=== PATIENT | male | born 1980 | race Caucasian/White ===

== ENCOUNTER 2016-08-31 15:44 | Emergency (ER) | payer OTHER ==
[2016-08-31] MEDS ORDERED: KETOROLAC TROMETHAMINE 60 MG/2 ML VIAL ONE (16:37)
--- NOTE | 2016-08-31 16:39 | ER PHYSICIAN DOCUMENTATION ---
Physician Documentation [facility] Name:Jonny Hanley Age:35 yrs Sex:Male :1980 Arrival Date:08/31/2016 Time:15:44 Bed5 Private MD: Dima Miller Disposition: 08/31/16 16:15 Discharged to Home/Self Care. Impression: Acute Back Pain, Lumbar Radiculopathy. - Condition is Good. - Discharge Instructions: BACK PAIN (Acute or Chronic). - Prescriptions for Percocet 5- 325 mg Oral - take 1 tablet by ORAL route every 6 hours As needed; 15 tablet. - Medical Reconciliation form form. - Follow up: Private Physician; When: As needed; Reason: Continuance of care. - Problem is new. - Symptoms have improved. HPI: 08/31 17:56 This 35 yrs old Male presents to ER via Private Vehicle with complaints of jm Fall Injury. 17:56 Details of fall: The patient fell from a height, getting off horse. Onset: The jm symptom(s)/episode began/occurred just prior to arrival. Severity of symptoms: in the emergency department the symptoms are unchanged. Pt w hx of needing multiple back surgeries, but he was on a horse and fell off and now has pain everywhere. . Historical: - Allergies: No known drug Allergies; - Home Meds: 1. gabapentin oral 2. Zolpidem Tartrate Oral - PMHx: None; - PSHx: right shoulder ; - Ebola Screening: : Patient negative for fever greater than or equal to 101.5 degrees Fahrenheit, and additional compatible Ebola Virus Disease symptoms. Patient denies exposure to infectious person. Patient denies travel to an Ebola-affected area in the 21 days before illness onset. No symptoms or risks identified at this time. . - Immunization history: Flu Vaccine None. - Social history: Smoking status: Patient states was never smoker of tobacco. Patient/guardian denies using alcohol, street drugs, IV drugs, marijuana. ROS: 18:31 Constitutional: Negative for fatigue, fever. jm 18:31 Back: Positive for injury or acute deformity, decreased range of motion, pain with movement. 18:31 MS/extremity: Positive for injury or acute deformity, pain. Exam: 18:31 Constitutional: The patient appears alert, awake, obese. jm 18:31 Respiratory: the patient does not display signs of respiratory distress, Respirations: normal. 18:31 Abdomen/GI: Inspection: abdomen appears normal, Bowel sounds: normal. 18:31 Back: pain, that is moderate, of the lumbar area. 18:31 Musculoskeletal/extremity: Extremities: grossly normal except: noted in the posterior aspect of left shoulder: decreased ROM, Pulses: are normal with no appreciated deficits. 18:31 Neuro: Mentation: is normal, Memory: is normal, Gait: is steady, Deep tendon reflexes are 2+ (normal) in the right patellar and left patellar. Vital Signs: 16:04 BP 129 / 82; Pulse 97; Resp 18; Temp 98.7; Pulse Ox 94% on R/A; sc1 MDM: 16:08 Patient medically screened. 18:32 Differential diagnosis: contusion. Data reviewed: vital signs, nurses notes, and as a jm result, I will discharge patient. Counseling: I had a detailed discussion with the patient and/or guardian regarding: lab results. Medication response: The patient's symptoms have improved, Dilaudid. Dispensed Medications: 16:25 Drug: Dilaudid 1 mg; Route: IM; Site: left gluteus; sc1 16:25 Drug: Toradol 60 mg; Route: IM; Site: right gluteus; sc1 Signatures: Darlene Mendoza RN RN sc1 Dima Espinoza MD MD
--- NOTE | 2016-08-31 16:39 | ER NURSING DOCUMENTATION ---
Nurse's Notes [facility] Name:Jonny Hanley Age:35 yrs Sex:Male :1980 Arrival Date:08/31/2016 Time:15:44 Bed5 Private MD: Diagnosis:Acute Back Pain;Lumbar Radiculopathy Presentation: 08/31 15:51 Acuity: JOLENE 3 ga1 15:59 Presenting complaint: Patient states: went on a horseback ride that pt. states was very sc1 "bumpy" and pt. has pain in left shoulder and neck that he said are to be surgically repaired "sometime". Transition of care: patient was not received from another setting of care. Notified ED Physician of patient's arrival and CC Alexis Flores notified. 15:59 Method Of Arrival: Private Vehicle [facility] Triage Assessment: 16:03 General: Appears distressed, well developed, well nourished, well groomed, Behavior is sc1 cooperative. Pain: Complains of pain in c-spine, left shoulder and right leg. Historical: - Allergies: No known drug Allergies; - Home Meds: 1. gabapentin oral 2. Zolpidem Tartrate Oral - PMHx: None; - PSHx: right shoulder ; - Ebola Screening: : Patient negative for fever greater than or equal to 101.5 degrees Fahrenheit, and additional compatible Ebola Virus Disease symptoms. Patient denies exposure to infectious person. Patient denies travel to an Ebola-affected area in the 21 days before illness onset. No symptoms or risks identified at this time. . - Immunization history: Flu Vaccine None. - Social history: Smoking status: Patient states was never smoker of tobacco. Patient/guardian denies using alcohol, street drugs, IV drugs, marijuana. Screenin:05 Infectious Disease Risk None. Abuse screen: Denies threats or abuse. Nutritional ga1 screening: No deficits noted. 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 Pt. sc1 left the ED and got in his car and drove off.. Vital Signs: 16:04 BP 129 / 82; Pulse 97; Resp 18; Temp 98.7; Pulse Ox 94% on R/A; ga1 ED Course: 15:47 Patient arrived in ED. ama 15:50 Darlene Mendoza, RN is Primary Nurse. [facility] 15:51 Triage completed. ga1 16:05 Notified ED Physician of patient's arrival and chief complaint. Dr. Espinoza notified. Arm ga1 band placed on Bed in low position Call Light in Reach Gowned HOB Elevated Side rails up x1. 16:08 Dima Espinoza MD is Attending Physician. keiry Administered Medications: 16:25 Drug: Dilaudid 1 mg; Route: IM; Site: left gluteus; ga1 16:25 Drug: Toradol 60 mg; Route: IM; Site: right gluteus; sc1 Outcome: 16:15 Discharge ordered by . keiry 16:37 Discharged to home ambulatory. [facility] 16:37 Condition: improved 16:37 Discharge instructions given to patient, Instructed on discharge instructions, follow up and referral plans. medication usage, Demonstrated understanding of instructions, medications, Prescriptions given X 1. 16:38 Patient left the ED. [facility] Signatures: Darlene Mendoza RN RN ga1 Dima Espinoza MD MD jm Averdick, Andrew, Reg Reg ama
== END 2016-08-31 16:39 | disposition home or self-care (01) ==
LOC: ER 15:44
DX: M54.89 Other dorsalgia (principal); M54.16 Radiculopathy, lumbar region; V80.010A Animal-rider injured by fall from or being thrown from horse in noncollision accident, initial encounter; Y92.838 Other recreation area as the place of occurrence of the external cause; Y93.52 Activity, horseback riding
CPT/HCPCS: 96372; 99283; J1170; J1885